=== PATIENT | female | born 1960 | race Caucasian/White ===

== ENCOUNTER 2017-01-30 11:43 | Emergency (ER) | payer MEDICAID ==
[~2017-01-30] VITALS: Ht 152.4 cm; Wt 68.0 kg
[2017-01-30 11:46] VITALS: Ht 152.4 cm; Wt 68.0 kg
[2017-01-30] MEDS ORDERED: HYDROCODONE/APAP (5/325) TAB PO ONE (12:00)
[2017-01-30] MEDS ORDERED: IBUPROFEN 600 MG TAB PO ONE (12:00)
--- NOTE | 2017-01-30 12:03 | ERD ---
ER Documentation Chief Complaint Date/Time DATE: 01/30/17 TIME: 12:02 Chief Complaint left arm pain s/p fell limited rom swelling HPI 56-year-old female who is right-hand dominant presents with left wrist pain that occurred status post fall that occurred this morning. She states that she put her arm out backwards, she complains of radial wrist pain, diffuse achy pain worse with movement and better at rest. She denies any paresthesias or weakness. She denies any hand pain, elbow pain. ROS All systems reviewed and are negative except as per history of present illness. Medications Home Meds Active Scripts Ondansetron (Ondansetron Odt) 4 Mg Tab.rapdis, 4 MG PO Q6H Y for NAUSEA AND/OR VOMITING, #10 TAB Prov:JAYLIN SHAH PA-C 01/30/17 Ibuprofen* (Motrin*) 600 Mg Tab, 600 MG PO Q6, #30 TAB Prov:JAYLIN SHAH PA-C 01/30/17 Hydrocodone/Acetaminophen (Dix 10-325 Tablet) 1 Each Tablet, 1 TAB PO Q6H Y for PAIN, #15 TAB Prov:JAYLIN SHAH PA-C 01/30/17 Allergies Allergies: Coded Allergies: No Known Allergy (Unverified , 01/30/17) PMhx/Soc History of Surgery: Yes ( ) Anesthesia Reaction: No Hx Neurological Disorder: No Hx Respiratory Disorders: No Hx Cardiac Disorders: No Hx Psychiatric Problems: No Hx Miscellaneous Medical Probl: No Hx Alcohol Use: No Hx Substance Use: No Hx Tobacco Use: No Physical Exam Vitals Vital Signs Date Time Temp Pulse Resp B/P Pulse Ox O2 Delivery O2 Flow Rate FiO2 01/30/17 11:46 98.1 75 18 181/92 97 Physical Exam General: Well-developed, well-nourished. The patient appears in no acute distress. HEENT: Head is normocephalic, atraumatic. No scleral icterus. Neck: Supple. Nontender. Lungs: Clear to auscultation. Normal air movement. Heart: Regular rate and rhythm. S1 and S2 are normal. No murmurs, gallops, or rubs. Abdomen: Nondistended. Extremities: Dorsal radial wrist swelling on the left side, swelling extends to the distal forearm, there is no snuffbox tenderness, patient is able to flex and extend the wrist but limited due to pain and swelling. Radial, ulnar, median nerve intact. Neurologic: Alert and oriented 3. No focal deficits. Normal speech and gait. Skin: Normal turgor. No rash or lesions. Results 24 hrs Current Medications Medications (Trade) Dose Ordered Sig/Tracy Route PRN Reason Start Time Stop Time Status Last Admin Dose Admin Acetaminophen/ Hydrocodone Bitart (Dix (5/325)) 1 tab ONCE ONCE PO 01/30/17 12:00 01/30/17 12:03 DC 01/30/17 12:02 Ibuprofen (Motrin) 600 mg ONCE ONCE PO 01/30/17 12:00 01/30/17 12:03 DC 01/30/17 12:01 DIAGNOSTIC IMAGING REPORT Patient: DAWNA AARON : 1960 Age: 56 Sex: F MR #: [id number] DOS: 01/30/17 1156 Ordering MD: JAYLIN SHAH PA-C Location: [facility] Room/Bed: PROCEDURE: XR, left wrist. CLINICAL INDICATION: Pain TECHNIQUE: AP, lateral and oblique views of the wrist were performed. COMPARISON: None available. FINDINGS: There is acute intra-articular comminuted fracture of the distal metaphysis radius with displacement. The joint spaces are well preserved. The soft tissues appear intact. IMPRESSION: 1. Acute intra-articular comminuted fracture of the distal metaphysis radius with displacement. RPTAT: GG .Orville Tao MD, MD Date Time Electronically viewed and signed by .Orville Tao MD, MD on 01/30/2017 12:50 .Y/ Procedures/MDM ED course: She was given ibuprofen, Dix for pain. Left wrist was splinted using a sugar tong splint.Left upper extremity was placed in a sling for comfort.Splint Assessment: Neurovascularly intact post splint placement with good fit. Medical decision makin-year-old female fell backwards onto an outstretched hand and is complaining of left radial wrist pain, Coming in with an acute closed displaced distal radius fracture. Patient is made aware that she is follow-up with orthopedics, will likely need surgical intervention. She does not have any evidence of compartment syndrome, neurovascular injury. The case was reviewed and discussed with Dr. Munguia who agrees with the plan of care , imaging as appropriate. Departure Diagnosis: Primary Impression: Left wrist fracture Condition: JAYLIN Alves PA-C Jan 30, 2017 12:03
--- NOTE | 2017-01-30 12:50 | RADRPT ---
PROCEDURE: XR, left wrist. CLINICAL INDICATION: Pain TECHNIQUE: AP, lateral and oblique views of the wrist were performed. COMPARISON: None available. FINDINGS: There is acute intra-articular comminuted fracture of the distal metaphysis radius with displacement . The joint spaces are well preserved. The soft tissues appear intact. IMPRESSION: 1. Acute intra-articular comminuted fracture of the distal metaphysis radius with displacement. RPTAT: GG .Orville Tao MD, MD Date Time Electronically viewed and signed by .Orville aTo MD, on 01/30/2017 12:50 .Y/
[2017-01-30] MEDS ORDERED: ONDA4TAB14 PO (13:03)
[2017-01-30] MEDS ORDERED: IBUP-1542 PO (13:03)
[2017-01-30] MEDS ORDERED: HYDR-902 PO (13:03)
== END 2017-01-30 13:44 | disposition home or self-care (01) ==
LOC: FTE 11:43
DX: S52.132A Displaced fracture of neck of left radius, initial encounter for closed fracture (principal); W18.39XA Other fall on same level, initial encounter; Y92.9 Unspecified place or not applicable
CPT/HCPCS: 29125; 73110; Z7502; Z7610